=== PATIENT | male | born 1965 | race African-American/Black ===

== ENCOUNTER 2017-04-10 09:50 | Emergency (ER) | payer SELFPAY | END 2017-04-10 10:27 | disposition home or self-care (01) | LOC: ERS 09:50 | DX: J11.1 Influenza due to unidentified influenza virus with other respiratory manifestations (principal); F17.210 Nicotine dependence, cigarettes, uncomplicated | CPT/HCPCS: 87804; 99283 ==

== ENCOUNTER 2018-08-08 18:11 | Emergency (ER) | payer SELFPAY ==
--- NOTE | 2018-08-08 18:59 | RAD ---
3 views right foot: 08/08/2018 COMPARISON: None HISTORY: Injury, trauma, pain FINDINGS: There is an obliquely oriented fracture at the base of the third and fourth metatarsal head . There may be a subtle fracture at the base of the second metatarsal head as well. The third metatarsal head fracture is slightly laterally displaced and the fourth metatarsal head fracture demo nstrates mild impaction. There is enthesophyte formation at the insertion of the Achilles tendon. IMPRESSION: Fracture deformities as detailed above.
== END 2018-08-08 21:27 | disposition home or self-care (01) ==
LOC: ERS 18:11
DX: S92.324A Nondisplaced fracture of second metatarsal bone, right foot, initial encounter for closed fracture (principal); S92.334A Nondisplaced fracture of third metatarsal bone, right foot, initial encounter for closed fracture; F17.210 Nicotine dependence, cigarettes, uncomplicated; W20.8XXA Other cause of strike by thrown, projected or falling object, initial encounter

== ENCOUNTER 2018-12-10 11:08 | Outpatient (CLI) | payer OTHER ==
--- NOTE | 2018-12-10 11:24 | RAD ---
EXAM: 4 views of the right knee HISTORY: Knee pain COMPARISON: None FINDINGS: No knee effusion is seen. There is a remote fracture of the medial femoral condyle which ap pears to be attempting to heal.. No significant degenerative changes are seen. No soft tissue swelling is present. IMPRESSION: Subacute to remote right distal femur fracture.
== END 2018-12-10 11:09 | disposition home or self-care (01) ==
LOC: RAD-FRANK 11:08
PROVIDERS: ATTEND Nurse Practitioner Family
DX: M25.561 Pain in right knee (principal); Z87.81 Personal history of (healed) traumatic fracture

== ENCOUNTER 2024-12-17 19:28 | Emergency (ER) | payer OTHER, SELFPAY ==
[2024-12-17] MEDS ORDERED: Ibuprofen 800 MG TAB ONE (20:07)
[2024-12-17] MEDS ORDERED: predniSONE 20 MG TAB ONE (20:07)
[2024-12-17 22:08] LABS: HIV (1/2) Antibody/Antigen NONREACTIVE (NonReactive); HIV 1/2 INDEX 0.05 S/CO (<1.00)
[2024-12-18 11:32] LABS: Syphilis Antibody Index 6.61 S/CO (<1.00 Non-Reactive)
[2024-12-18 12:07] LABS: Syphilis Titer Non-Reactive Titer (Nonreactive)
== END 2024-12-17 22:29 | disposition home or self-care (01) ==
LOC: ERS 19:28
DX: B08.1 Molluscum contagiosum (principal); I10 Essential (primary) hypertension; F17.210 Nicotine dependence, cigarettes, uncomplicated
CPT/HCPCS: 36415; 86593; 86780; 87081; 87389; 87430; 99282; J7512